=== PATIENT | female | born 1980 | race Caucasian/White ===

== ENCOUNTER 2023-04-29 11:26 | Inpatient (IN) | payer MEDICAID ==
[~2023-04-29] VITALS: Ht 175.3 cm; Wt 56.0 kg
[2023-04-29] MEDS ORDERED: acetaminophen 325mg tablet PO STA (11:27)
[2023-04-29] MEDS ORDERED: normal saline 1000ML IV soln IV ONE (12:05)
[2023-04-29 12:22] LABS: BASOPHILS % (AUTO) 0.2 % (0-1); EOSINOPHILS % (AUTO) 0.1 % (0-6); HEMATOCRIT 32.4 % (35.0-45.0); HEMOGLOBIN 10.8 g/dl (12.0-16.0); LYMPHOCYTES # (AUTO) 0.9 X10'3 (1.1-4.8); LYMPHOCYTES % (AUTO) 5.8 % (21-51); MEAN CORPUSCULAR HEMOGLOBIN 31.6 PG (27.0-31.0); MEAN CORPUSCULAR HGB CONC 33.4 g/dL (33.0-36.5); MEAN CORPUSCULAR VOLUME 94.8 FL (78-98); MEAN PLATELET VOLUME 7.1 FL (7.4-10.4); MONOCYTES # (AUTO) 0.6 X10'3 (0-0.9); MONOCYTES % (AUTO) 3.9 % (2-12); NEUTROPHILS # (AUTO) 13.5 X10'3 (1.8-7.7); PLATELET COUNT 386 X10'3 (140-440); RED BLOOD COUNT 3.42 X10'6 (4.20-5.60); RED CELL DISTRIBUTION WIDTH 13.2 % (11.5-14.5)
[2023-04-29] MEDS ORDERED: CefTRIAXone/D5W-Rocephin 1gm 50 ML IV ONE (12:40)
[2023-04-29 12:48] LABS: ALANINE AMINOTRANSFERASE 31 U/L (12-78); ALBUMIN 3.3 G/DL (3.4-5.0); ALBUMIN/GLOBULIN RATIO 0.9 (1.1-1.5); ALKALINE PHOSPHATASE 69 IU/L (46-116); ANION GAP 10 (8-16); ASPARTATE AMINO TRANSFERASE 19 U/L (10-37); BILIRUBIN,TOTAL 0.6 MG/DL (0.1-1.0); BLOOD UREA NITROGEN 9 MG/DL (7-18); BUN/CREATININE RATIO 12.9 (10.0-20.0); CALCIUM 8.6 MG/DL (8.5-10.1); CHLORIDE 102 MMOL/L (99-107); GLUCOSE 110 MG/DL (70-104); POTASSIUM 3.9 MMOL/L (3.5-5.1); SODIUM 138 MMOL/L (135-145); TOTAL CARBON DIOXIDE 26.5 MMOL/L (24-32); TOTAL PROTEIN 6.9 G/DL (6.4-8.2); eCRCL 94 ML/MIN; eGFR > 90 ML/MIN
[2023-04-29] MEDS ORDERED: vancomycin/NS 1 GM ADD-VANTAGE 250 ML IV ONE (12:50)
--- NOTE | 2023-04-29 13:58 | NUR ---
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 Pt in stable condition. Pt latying on gurney. RR even and unalabored. No s/s of rest distress.
[2023-04-29] MEDS ORDERED: iohexol 300mg/ml 100ml inj. ONE (14:08)
[2023-04-29 14:29] LABS: BILIRUBIN,URINE NEGATIVE (Neg); CLARITY,URINE CLOUDY (Clear); COLOR,URINE YELLOW (Yellow); GLUCOSE, URINE NEGATIVE (Neg); KETONES,URINE NEGATIVE (Neg); LEUKOCYTE ESTERASE ,URINE SMALL (Neg); NITRITES, URINE POSITIVE (Neg); OCCULT BLOOD,URINE TRACE-INTACT (Neg); PH,URINE 6.5 (4.8-8.0); PROTEIN,URINE NEGATIVE (Neg); UROBILINOGEN,URINE 0.2 E.U/dL (0.2-1.0)
[2023-04-29 14:31] LABS: URINE HCG NEGATIVE (NEG)
[2023-04-29 14:33] LABS: UA COLLECTION TYPE VOIDED
[2023-04-29 14:36] LABS: BACTERIA,URINE 4+ /HPF (Neg); MUCUS STRANDS FEW /LPF (Neg); RBC,URINE 0-2 /HPF (0-2); SQUAMOUS EPITHELIAL CELL,UR MODERATE /LPF (FEW); WBC CLUMPS,URINE FEW /HPF (NEGATIVE); WBC,URINE 30-50 /HPF (0-4)
[2023-04-29 14:51] LABS: URINE AMPHETAMINE SCREEN POSITIVE (Neg); URINE BARBITUATE SCREEN NEGATIVE (Neg); URINE BENZODIAZEPINES SCREEN NEGATIVE (Neg); URINE CANNABINOID SCREEN POSITIVE (Neg); URINE COCAINE SCREEN NEGATIVE (Neg); URINE METHADONE SCREEN NEGATIVE (Neg); URINE OPIATE SCREEN NEGATIVE (Neg); URINE PHENCYCLIDINE SCREEN NEGATIVE (Neg)
[2023-04-29] MEDS ORDERED: mupirocin 2% ointment 22GM TP ONE (14:55)
[2023-04-29] MEDS ORDERED: morphine 2 MG/ML inj. syringe IV ONE (14:55)
[2023-04-29] MEDS ORDERED: magnesium 2GM in 50ml NS 50 ML IV PRN (17:00)
[2023-04-29] MEDS ORDERED: potassium Cl 40MEQ/1/2NS 520ml 520 ML IV PRN (17:00)
[2023-04-29] MEDS ORDERED: magnesium 4gm in 100ml NS 100 ML IV PRN (17:00)
[2023-04-29] MEDS ORDERED: magnesium hydroxide 30ml (MOM) UD suspension PO PRN (17:00)
[2023-04-29] MEDS ORDERED: acetaminophen 325mg tablet PO PRN (17:00)
[2023-04-29] MEDS ORDERED: magnesium Cl slow-release 64mg tablet PO PRN (17:00)
[2023-04-29] MEDS ORDERED: HYDROcodone/acetaminophen 5mg/325mg tablet PO PRN (17:00)
[2023-04-29] MEDS ORDERED: ondansetron 4mg rapidly disintigrating tab PO PRN (17:00)
[2023-04-29] MEDS ORDERED: acetaminophen 650mg rectal suppository RC PRN (17:00)
[2023-04-29] MEDS ORDERED: potassium Cl 20 mEq SR tablet PO PRN ×2 (17:00)
[2023-04-29] MEDS ORDERED: HYDROmorphone/PF 0.2 MG/ML SYRINGE IV PRN (17:00)
[2023-04-29] MEDS ORDERED: mag hydrox/Alum hydrox/simeth 30ml oral suspension PO PRN (17:00)
[2023-04-29] MEDS ORDERED: LORazepam 1 MG tablet PO PRN (17:00)
[2023-04-29] MEDS ORDERED: bisacodyl 10mg suppository rectal RC PRN (17:00)
[2023-04-29] MEDS ORDERED: LORazepam 2 mg/ml vial IV PRN (17:00)
[2023-04-29] MEDS ORDERED: TETanus/Pertussis (Acell)/Diphther VAC/PF (Tdap-Adult) 0.5ml syringe IMVAC ONE (17:10)
[2023-04-29] MEDS: normal saline 1000ml 1,000 ML IV SCH (17:36)
[2023-04-29] MEDS: K and/or MAG REPLACEMENT MC SCH (20:00)
[2023-04-29] MEDS: docusate sod 100mg capsule PO SCH (20:55)
[2023-04-29] MEDS: buPROPion 100mg tablet PO SCH (20:57)
[2023-04-30] VITALS (7 sets, daily range): BP systolic 91–110; BP diastolic 53–70; PULSE 79–93; RESP 14–16; TEMP 98.5–100.1; O2SAT 99–100
[2023-04-30] MEDS: normal saline 1000ml 1,000 ML IV SCH ×4 (03:00→23:39)
[2023-04-30] MEDS: clindamycin 300mg/D5W 50mL 50 ML IV SCH ×3 (05:02→15:54)
[2023-04-30] MEDS: HYDROcodone/acetaminophen 10/325mg tab PO PRN (05:11)
--- NOTE | 2023-04-30 06:39 | NUR ---
notified night OF GRAM POSITIVE BLOOD CULTURE, AND DM STATED "CLINDAMYCIN AND ROCEPHIN IS STILL OK TO USE". Addendum: 04/30/23 at 0713 by Atif Nickerson RN PAGER ID: [phone] MESSAGE: GABRIEL JARQUIN, ORTHO, [id number]. RE: [id number]. PT. HAS GRAM + VALDO, AND GRAM - VALDO. PT. ON CLINDAMYCIN AND ROCEPHIN. THANKS
--- NOTE | 2023-04-30 06:44 | NUR ---
Patient in room ORTHO 4012. I have received report from AILEEN RIOS and had the opportunity to ask questions and assume patient care.
[2023-04-30 07:04] LABS: BASOPHILS # (AUTO) 0.1 X10'3 (0-0.2); BASOPHILS % (AUTO) 0.7 % (0-1); EOSINOPHILS % (AUTO) 0.3 % (0-6); HEMATOCRIT 30.2 % (35.0-45.0); HEMOGLOBIN 10.2 g/dl (12.0-16.0); LYMPHOCYTES # (AUTO) 1.3 X10'3 (1.1-4.8); LYMPHOCYTES % (AUTO) 10.1 % (21-51); MEAN CORPUSCULAR HEMOGLOBIN 31.9 PG (27.0-31.0); MEAN CORPUSCULAR HGB CONC 33.7 g/dL (33.0-36.5); MEAN CORPUSCULAR VOLUME 94.7 FL (78-98); MEAN PLATELET VOLUME 8.2 FL (7.4-10.4); MONOCYTES # (AUTO) 0.6 X10'3 (0-0.9); MONOCYTES % (AUTO) 4.6 % (2-12); NEUTROPHILS # (AUTO) 11.1 X10'3 (1.8-7.7); NEUTROPHILS % (AUTO) 84.3 % (42-75); PLATELET COUNT 338 X10'3 (140-440); RED BLOOD COUNT 3.19 X10'6 (4.20-5.60); RED CELL DISTRIBUTION WIDTH 12.9 % (11.5-14.5); WHITE BLOOD COUNT 13.2 X10'3 (4.5-11.0)
[2023-04-30 07:28] LABS: ALANINE AMINOTRANSFERASE 43 U/L (12-78); ALBUMIN 2.6 G/DL (3.4-5.0); ALBUMIN/GLOBULIN RATIO 0.7 (1.1-1.5); ALKALINE PHOSPHATASE 81 IU/L (46-116); ANION GAP 9 (8-16); ASPARTATE AMINO TRANSFERASE 25 U/L (10-37); BILIRUBIN,TOTAL 0.3 MG/DL (0.1-1.0); BLOOD UREA NITROGEN 8 MG/DL (7-18); BUN/CREATININE RATIO 10.4 (10.0-20.0); CHLORIDE 103 MMOL/L (99-107); CREATININE 0.77 MG/DL (0.40-0.90); GLUCOSE 127 MG/DL (70-104); MAGNESIUM 1.9 MG/DL (1.5-2.4); POTASSIUM 3.7 MMOL/L (3.5-5.1); SODIUM 136 MMOL/L (135-145); TOTAL CARBON DIOXIDE 24.3 MMOL/L (24-32); TOTAL PROTEIN 6.1 G/DL (6.4-8.2); eCRCL 85 ML/MIN; eGFR 83 ML/MIN
[2023-04-30] MEDS: buPROPion 100mg tablet PO SCH ×4 (08:00→20:41)
[2023-04-30] MEDS: K and/or MAG REPLACEMENT MC SCH ×2 (08:00→20:00)
[2023-04-30] MEDS: enoxaparin 40mg/0.4ml syringe SUBCUT SCH (08:17)
[2023-04-30] MEDS: docusate sod 100mg capsule PO SCH ×2 (08:17→20:41)
[2023-04-30] MEDS: CefTRIAXone/D5W-Rocephin 1gm 50 ML IV SCH (08:17)
[2023-04-30] MEDS ORDERED: pneumococcal 23-VAL P-sac vacc 25 mcg/0.5ml vial IMVAC ONE (10:00)
[2023-04-30] MEDS: HYDROmorphone inj. 0.5 MG/0.5 ML DISP.SYRIN IV PRN ×2 (10:56→15:53)
--- NOTE | 2023-04-30 14:35 | NUR ---
Malnutrition consult: Per RN malnutrition screen pt reports 2-13 pound wt loss and a decreased appetite/PO intake. Pt seen at bedside and reports UBW of 135-155 pounds and is unsure if she had lost any wt recently. Pt could not remember the last time she weighed herself or had seen her UBW. Due to pending scaled wt this admit and prior wt hx of 56.8kg (125 pounds) on 02/18/23 per EMR, wt loss is unclear. Pt has a hx of homelessness reports eating whenever she can. Pt was unsure if overall her appetite had changed recently. Pt is currently on a regular diet with average PO intake of 100% x 2 meals. Pt request a sprite with dinner; communicated with dietary. No physical signs of muscle or fat wasting indicated at this time though suspected pt has been chronically undernourished. Pt does not meet a minimum of two malnutrition criteria at this time. Will continue to monitor. Addendum: 04/30/23 at [address] Amended: Links added.
--- NOTE | 2023-04-30 14:44 | NUR ---
Malnutrition consult: Per RN malnutrition screen pt reports 2-13 pound wt loss and a decreased appetite/PO intake. Pt seen at bedside and reports UBW of 135-155 pounds and is unsure if she had lost any wt recently. Pt could not remember the last time she weighed herself or had seen her UBW. Due to pending scaled wt this admit and prior wt hx of 56.8kg (125 pounds) on 02/18/23 per EMR, wt loss is unclear. Noted ht this admit of 68 inches is higher prior ht hx 64-69 inches per EMR. Pt has a hx of homelessness reports eating whenever she can. Pt was unsure if overall her appetite had changed recently. Pt is currently on a regular diet with average PO intake of 100% x 2 meals. Pt request a sprite with dinner; communicated with dietary. No physical signs of muslce or fat wasting indicated at this time though suspected pt has been chronically underweight at baseline. Pt does have 1+ trace non-pitting edema to her ankle however pt has a diagnosis of cellulitis to right lower extremity. Wound care has been consulted;pending WOC note. Pt does not meet a minimum of two malnutrition criteria at this time. Will continue to monitor. Addendum: 04/30/23 at [address] Amended: Links added.
[2023-04-30] MEDS ORDERED: UNABLE TO OBTAIN (16:34)
--- NOTE | 2023-04-30 16:58 | NUR ---
PAGER ID: [phone] MESSAGE: GABRIEL JARQUIN, ORTHO, [id number]. RE: [id number]. PT. HAS BAD ACID REFLUX. NOTHING ON EMAR. FYI. THANKS
[2023-04-30] MEDS ORDERED: famotidine 10mg tablet PO PRN (17:10)
--- NOTE | 2023-04-30 17:15 | NUR ---
PRESSURE ULCER EDUCATION: DEFINITION: A pressure ulcer is an area of skin that breaks down when you stay in one position too long. The constant pressure against the skin reduces the blood flow to that area and the affected tissue dies. CAUSES: "Being bedridden or in a wheelchair "Fragile skin "Having a chronic condition, such as diabetes or vascular disease "Inability to move certain parts of your body without assistance "Older age "Incontinence of urine or stool SYMPTOMS: "A reddened area that DOES NOT turn white when pressed on - this can be the beginning of a pressure ulcer "A blister, deep sore or a crater - these can be advanced pressure ulcers FIRST AID: "Relieve the pressure on this area "Keep the area clean and dry "Call your primary doctor if you see any of the above symptoms "DO NOT massage the area "DO NOT use a donut shaped or ring shaped pillow- these actually interfere with the blood flow and cause complications PREVENTION: "Check for pressure ulcers everyday "Change position at least every two hours to relieve pressure "Use items that help relieve pressure- pillows, sheepskin, foam padding, and powders. "Keep skin clean and dry "Eat healthy well balanced meals "Exercise daily IF YOU SEE ANY OF THESE SYMPTOMS WHILE IN THE HOSPITAL - TELL YOUR NURSE IMMEDIATELY. IF YOU SEE ANY OF THESE SYMPTOMS WHILE AT HOME OR HAVE ANY QUESTIONS OR CONCERNS ABOUT PRESSURE ULCERS - CALL YOUR PRIMARY DOCTOR IMMEDIATELY. Addendum: 04/30/23 at 1715 by Suzie Mckay LVN Amended: Links added.
[2023-04-30] MEDS ORDERED: famotidine 20mg tablet PO PRN (17:18)
[2023-04-30] MEDS: calcium carbonate 500mg chew tablet PO SCH (17:26)
[2023-04-30] MEDS: nicotine 21mg patch - 24 hr TD SCH (17:27)
[2023-04-30] MEDS ORDERED: VANCOMYCIN 1,500MG in normal saline IV soln 300 ML IV ONE (17:30)
--- NOTE | 2023-04-30 18:30 | NUR ---
Patient in room ORTHO 4012. I have received report from MILKA and had the opportunity to ask questions and assume patient care.
--- NOTE | 2023-04-30 18:44 | NUR ---
Problems reprioritized. Patient report given TO ANDREW RIOS, questions answered & plan of care reviewed with .
[2023-04-30] MEDS: cefepime 2g/NS 100ml ADVANTAGE 100 ML IV SCH (23:37)
[2023-05-01] MEDS: clindamycin 300mg/D5W 50mL 50 ML IV SCH ×4 (01:14→23:14)
[2023-05-01] MEDS: ondansetron/PF 4mg/2ml inj IV PRN (03:05)
[2023-05-01] MEDS: HYDROcodone/acetaminophen 10/325mg tab PO PRN ×3 (03:11→14:03)
[2023-05-01] MEDS: vancomycin/NS 1 GM ADD-VANTAGE 250 ML IV SCH ×2 (04:38→19:53)
[2023-05-01 06:00] VITALS: BP 123/66; PULSE 86; RESP 16; TEMP 99; O2SAT 100
[2023-05-01 06:10] LABS: BASOPHILS % (AUTO) 0.1 % (0-1); EOSINOPHILS # (AUTO) 0.1 X10'3 (0-0.9); EOSINOPHILS % (AUTO) 0.9 % (0-6); HEMATOCRIT 29.3 % (35.0-45.0); MEAN CORPUSCULAR HEMOGLOBIN 32.2 PG (27.0-31.0); MEAN CORPUSCULAR HGB CONC 34.1 g/dL (33.0-36.5); MEAN CORPUSCULAR VOLUME 94.2 FL (78-98); MEAN PLATELET VOLUME 7.5 FL (7.4-10.4); MONOCYTES # (AUTO) 0.5 X10'3 (0-0.9); MONOCYTES % (AUTO) 5.2 % (2-12); NEUTROPHILS # (AUTO) 8.3 X10'3 (1.8-7.7); NEUTROPHILS % (AUTO) 83.8 % (42-75); PLATELET COUNT 320 X10'3 (140-440); RED BLOOD COUNT 3.11 X10'6 (4.20-5.60); WHITE BLOOD COUNT 9.9 X10'3 (4.5-11.0)
[2023-05-01 06:16] LABS: ALANINE AMINOTRANSFERASE 31 U/L (12-78); ALBUMIN 2.4 G/DL (3.4-5.0); ALBUMIN/GLOBULIN RATIO 0.7 (1.1-1.5); ALKALINE PHOSPHATASE 65 IU/L (46-116); ANION GAP 7 (8-16); ASPARTATE AMINO TRANSFERASE 15 U/L (10-37); BILIRUBIN,TOTAL 0.2 MG/DL (0.1-1.0); BLOOD UREA NITROGEN 10 MG/DL (7-18); BUN/CREATININE RATIO 12.7 (10.0-20.0); CALCIUM 8.5 MG/DL (8.5-10.1); CHLORIDE 105 MMOL/L (99-107); CREATININE 0.79 MG/DL (0.40-0.90); GLUCOSE 116 MG/DL (70-104); POTASSIUM 3.9 MMOL/L (3.5-5.1); SODIUM 137 MMOL/L (135-145); TOTAL CARBON DIOXIDE 25.2 MMOL/L (24-32); eCRCL 83 ML/MIN; eGFR 80 ML/MIN
--- NOTE | 2023-05-01 06:28 | NUR ---
Problems reprioritized. Patient report given, questions answered & plan of care reviewed with WILLIAN.
--- NOTE | 2023-05-01 06:41 | NUR ---
Patient in room ORTHO 4012. I have received report from GABRIEL Collier and had the opportunity to ask questions and assume patient care.
[2023-05-01] MEDS: K and/or MAG REPLACEMENT MC SCH ×2 (08:00→20:00)
[2023-05-01] MEDS: enoxaparin 40mg/0.4ml syringe SUBCUT SCH (08:00)
[2023-05-01] MEDS: docusate sod 100mg capsule PO SCH ×2 (08:23→20:30)
[2023-05-01] MEDS: buPROPion 100mg tablet PO SCH ×3 (08:24→20:30)
[2023-05-01] MEDS: calcium carbonate 500mg chew tablet PO SCH ×3 (08:24→20:30)
[2023-05-01] MEDS: nicotine 21mg patch - 24 hr TD SCH (08:24)
--- NOTE | 2023-05-01 08:59 | NUR ---
MESSAGE: markos Olivera- [id number] Gladis Alcazar- [phone] Pt refused MRI, educated on the importance and still refused. Thank you
--- NOTE | 2023-05-01 09:41 | NUR ---
pt refused MRI and Doctor was paged about her refusal with patient education
[2023-05-01] MEDS: CefTRIAXone/D5W-Rocephin 1gm 50 ML IV SCH (10:01)
--- NOTE | 2023-05-01 10:57 | NUR ---
F/u 05/01: Per [facility] note pt has a laceration on right lateral 5th finger, abrasion to right and left knee, and abrasion to right lateral malleolus. Will continue to follow. Addendum: 05/01/23 at [address] Amended: Links added.
--- NOTE | 2023-05-01 11:23 | NUR ---
Sterile procedure was happening in room and I was not allowed to enter, antibiotics are running late due to not being able to get into the room timely.
[2023-05-01] MEDS: cefepime 2g/NS 100ml ADVANTAGE 100 ML IV SCH ×3 (11:25→23:14)
[2023-05-01] MEDS: normal saline 1000ml 1,000 ML IV SCH (15:35)
[2023-05-01] MEDS: HYDROmorphone inj. 0.5 MG/0.5 ML DISP.SYRIN IV PRN ×2 (16:28→20:30)
--- NOTE | 2023-05-01 18:00 | NUR ---
Patient in room ORTHO 4012. I have received report from GABRIEL GOULD and had the opportunity to ask questions and assume patient care.
--- NOTE | 2023-05-01 18:23 | NUR ---
Problems reprioritized. Patient report given, questions answered & plan of care reviewed with GABRIEL Fabian.
[2023-05-01 22:00] VITALS: BP 92/48; PULSE 91; RESP 16; TEMP 97.7; O2SAT 98
[2023-05-02] MEDS: HYDROcodone/acetaminophen 10/325mg tab PO PRN ×4 (01:55→20:20)
[2023-05-02] MEDS: vancomycin/NS 1 GM ADD-VANTAGE 250 ML IV SCH ×2 (04:24→16:57)
[2023-05-02] MEDS: normal saline 1000ml 1,000 ML IV SCH ×2 (04:27→11:40)
[2023-05-02 06:00] VITALS: BP 93/51; PULSE 80; RESP 16; TEMP 98.5; O2SAT 97
--- NOTE | 2023-05-02 06:31 | NUR ---
Problems reprioritized. Patient report given, questions answered & plan of care reviewed with JOHNY GREGORY.
[2023-05-02 06:44] LABS: BASOPHILS % (AUTO) 0.2 % (0-1); EOSINOPHILS # (AUTO) 0.2 X10'3 (0-0.9); EOSINOPHILS % (AUTO) 2.2 % (0-6); HEMOGLOBIN 10.1 g/dl (12.0-16.0); LYMPHOCYTES % (AUTO) 14.6 % (21-51); MEAN CORPUSCULAR HEMOGLOBIN 32.1 PG (27.0-31.0); MEAN CORPUSCULAR HGB CONC 33.6 g/dL (33.0-36.5); MEAN CORPUSCULAR VOLUME 95.5 FL (78-98); MEAN PLATELET VOLUME 7.8 FL (7.4-10.4); MONOCYTES # (AUTO) 0.4 X10'3 (0-0.9); MONOCYTES % (AUTO) 6.3 % (2-12); NEUTROPHILS # (AUTO) 5.2 X10'3 (1.8-7.7); NEUTROPHILS % (AUTO) 76.7 % (42-75); PLATELET COUNT 323 X10'3 (140-440); RED BLOOD COUNT 3.14 X10'6 (4.20-5.60); RED CELL DISTRIBUTION WIDTH 13.3 % (11.5-14.5); WHITE BLOOD COUNT 6.7 X10'3 (4.5-11.0)
[2023-05-02 07:00] VITALS: RESP 16; O2SAT 98
[2023-05-02 07:19] LABS: ALANINE AMINOTRANSFERASE 33 U/L (12-78); ALBUMIN 2.4 G/DL (3.4-5.0); ALBUMIN/GLOBULIN RATIO 0.7 (1.1-1.5); ALKALINE PHOSPHATASE 64 IU/L (46-116); ANION GAP 7 (8-16); ASPARTATE AMINO TRANSFERASE 13 U/L (10-37); BILIRUBIN,TOTAL 0.2 MG/DL (0.1-1.0); BLOOD UREA NITROGEN 8 MG/DL (7-18); BUN/CREATININE RATIO 12.7 (10.0-20.0); CALCIUM 8.4 MG/DL (8.5-10.1); CHLORIDE 106 MMOL/L (99-107); CREATININE 0.63 MG/DL (0.40-0.90); GLUCOSE 127 MG/DL (70-104); POTASSIUM 3.7 MMOL/L (3.5-5.1); SODIUM 137 MMOL/L (135-145); TOTAL CARBON DIOXIDE 24.3 MMOL/L (24-32); eCRCL 104 ML/MIN; eGFR > 90 ML/MIN
[2023-05-02] MEDS: K and/or MAG REPLACEMENT MC SCH ×2 (08:00→19:27)
[2023-05-02] MEDS: enoxaparin 40mg/0.4ml syringe SUBCUT SCH (08:16)
[2023-05-02] MEDS: docusate sod 100mg capsule PO SCH ×2 (08:16→20:21)
[2023-05-02] MEDS: nicotine 21mg patch - 24 hr TD SCH (08:17)
[2023-05-02] MEDS: buPROPion 100mg tablet PO SCH ×3 (08:17→20:21)
[2023-05-02] MEDS: calcium carbonate 500mg chew tablet PO SCH ×3 (08:17→17:55)
[2023-05-02] MEDS: cefepime 2g/NS 100ml ADVANTAGE 100 ML IV SCH (08:21)
[2023-05-02] MEDS: clindamycin 300mg/D5W 50mL 50 ML IV SCH (09:05)
[2023-05-02 10:00] VITALS: BP 100/57; PULSE 78; RESP 16; TEMP 98.4; O2SAT 98
[2023-05-02] MEDS ORDERED: piperacillin/tazo 4.5gm/100ml 100 ML IV SCH (10:25)
[2023-05-02] MEDS: levoFLOXACIN-Levaquin 750MG/D5 150 ML IV SCH (11:40)
--- NOTE | 2023-05-02 12:41 | NUR ---
WOUND INFECTION EDUCATION PROVIDED BY WOUND CARE 1. Patient instructed to call their primary doctor, or go the ED immediately if any of the following symptoms occur: * Increased pain in wound * Increase in drainage from the wound * Redness in the skin surrounding the wound * Warmth in the skin surrounding the wound * Bleeding from the wound * Temperature of 101 or greater 2. If any of these occur while in the hospital tell a nurse immediately. Addendum: 05/02/23 at 1241 by Julien Reynoso RN Amended: Links added.
[2023-05-02] MEDS ORDERED: VANCOMYCIN LEVEL IV ONE (16:30)
--- NOTE | 2023-05-02 16:50 | NUR ---
Lab not able to draw trough as ordered by pharmacist on this dose. Deirdre pharmacist was notified. She stated she will have it retimed and do the trough next dose.
[2023-05-02 18:00] VITALS: BP 102/64; PULSE 73; RESP 18; TEMP 97.9; O2SAT 98
--- NOTE | 2023-05-02 18:00 | NUR ---
I have reviewed and agree with interventions, assessments, and documentation by La Vazquez LVN.
[2023-05-02 19:00] VITALS: RESP 18; O2SAT 100
[2023-05-02 20:00] VITALS: BP 115/63; PULSE 82; RESP 16; TEMP 97.3; O2SAT 100
[2023-05-02] MEDS: metroNIDAZOLE 500mg tablet PO SCH (20:20)
[2023-05-03] MEDS: normal saline 1000ml 1,000 ML IV SCH ×2 (01:00→11:00)
[2023-05-03] MEDS: HYDROcodone/acetaminophen 10/325mg tab PO PRN ×3 (02:15→14:41)
[2023-05-03] MEDS ORDERED: VANCOMYCIN LEVEL IV ONE (04:30)
[2023-05-03] MEDS: vancomycin/NS 1 GM ADD-VANTAGE 250 ML IV SCH (05:25)
[2023-05-03 06:00] VITALS: BP 107/74; PULSE 71; RESP 16; TEMP 97.4; O2SAT 100
--- NOTE | 2023-05-03 06:00 | NUR ---
Problems reprioritized. Patient report given, questions answered & plan of care reviewed with Keara MCCLAIN.
[2023-05-03 06:28] LABS: BASOPHILS % (AUTO) 0.3 % (0-1); EOSINOPHILS # (AUTO) 0.2 X10'3 (0-0.9); HEMATOCRIT 32.6 % (35.0-45.0); HEMOGLOBIN 10.7 g/dl (12.0-16.0); LYMPHOCYTES # (AUTO) 0.8 X10'3 (1.1-4.8); LYMPHOCYTES % (AUTO) 14.4 % (21-51); MEAN CORPUSCULAR HEMOGLOBIN 31.4 PG (27.0-31.0); MEAN CORPUSCULAR HGB CONC 32.7 g/dL (33.0-36.5); MEAN CORPUSCULAR VOLUME 95.7 FL (78-98); MEAN PLATELET VOLUME 7.9 FL (7.4-10.4); MONOCYTES # (AUTO) 0.4 X10'3 (0-0.9); MONOCYTES % (AUTO) 6.7 % (2-12); NEUTROPHILS # (AUTO) 4.4 X10'3 (1.8-7.7); NEUTROPHILS % (AUTO) 75.6 % (42-75); PLATELET COUNT 421 X10'3 (140-440); RED BLOOD COUNT 3.41 X10'6 (4.20-5.60); RED CELL DISTRIBUTION WIDTH 13.2 % (11.5-14.5); WHITE BLOOD COUNT 5.8 X10'3 (4.5-11.0)
[2023-05-03 06:58] LABS: ALANINE AMINOTRANSFERASE 31 U/L (12-78); ALBUMIN 2.5 G/DL (3.4-5.0); ALBUMIN/GLOBULIN RATIO 0.6 (1.1-1.5); ALKALINE PHOSPHATASE 63 IU/L (46-116); ANION GAP 5 (8-16); ASPARTATE AMINO TRANSFERASE 15 U/L (10-37); BILIRUBIN,TOTAL 0.1 MG/DL (0.1-1.0); BLOOD UREA NITROGEN 12 MG/DL (7-18); CALCIUM 8.9 MG/DL (8.5-10.1); CHLORIDE 104 MMOL/L (99-107); CREATININE 0.75 MG/DL (0.40-0.90); GLUCOSE 90 MG/DL (70-104); MAGNESIUM 2.3 MG/DL (1.5-2.4); POTASSIUM 4.7 MMOL/L (3.5-5.1); SODIUM 139 MMOL/L (135-145); TOTAL CARBON DIOXIDE 29.6 MMOL/L (24-32); VANCOMYCIN,TROUGH 7.4 UG/ML (6.0-14.0); eCRCL 87 ML/MIN; eGFR 85 ML/MIN
[2023-05-03 07:00] VITALS: RESP 16; O2SAT 98
[2023-05-03] MEDS: K and/or MAG REPLACEMENT MC SCH ×2 (08:00→20:00)
[2023-05-03] MEDS: enoxaparin 40mg/0.4ml syringe SUBCUT SCH (08:00)
[2023-05-03] MEDS: levoFLOXACIN-Levaquin 750MG/D5 150 ML IV SCH (08:18)
[2023-05-03] MEDS: calcium carbonate 500mg chew tablet PO SCH ×3 (08:45→17:54)
[2023-05-03] MEDS: buPROPion 100mg tablet PO SCH ×3 (08:45→20:57)
[2023-05-03] MEDS: metroNIDAZOLE 500mg tablet PO SCH ×2 (08:45→20:57)
[2023-05-03] MEDS: docusate sod 100mg capsule PO SCH ×2 (08:46→20:57)
[2023-05-03] MEDS: nicotine 21mg patch - 24 hr TD SCH (08:46)
[2023-05-03 10:00] VITALS: BP 98/61; PULSE 89; RESP 16; TEMP 98.3; O2SAT 98
[2023-05-03] MEDS: VANCOmycin 1250MG/NS 250ml Bag 250 ML IV SCH (16:56)
--- NOTE | 2023-05-03 17:30 | NUR ---
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
[2023-05-03 18:00] VITALS: BP 103/53; PULSE 74; RESP 11; TEMP 97.7; O2SAT 100
--- NOTE | 2023-05-03 18:36 | NUR ---
Patient in room ORTHO 4012. I have received report from Briseyda MCCLAIN and had the opportunity to ask questions and assume patient care.
[2023-05-03 22:00] VITALS: BP_SYST 103; BP_SYST 117; BP_DIAS 53; BP_DIAS 65; PULSE 100; PULSE 79; RESP 16; RESP 19; TEMP 98.6; O2SAT 100
[2023-05-04] MEDS: VANCOmycin 1250MG/NS 250ml Bag 250 ML IV SCH (05:39)
[2023-05-04] MEDS: ondansetron/PF 4mg/2ml inj IV PRN (05:40)
[2023-05-04] MEDS: acetaminophen 325mg tablet PO PRN ×2 (05:51→17:56)
[2023-05-04 06:00] VITALS: BP 101/68; PULSE 64; RESP 17; TEMP 98; O2SAT 99
--- NOTE | 2023-05-04 06:30 | NUR ---
I have received report from JOHNY Pathak and had the opportunity to ask questions and assume patient care. No distress at this time.
[2023-05-04 07:00] VITALS: RESP 16; O2SAT 98
[2023-05-04] MEDS: normal saline 1000ml 1,000 ML IV SCH (07:57)
[2023-05-04] MEDS: nicotine 21mg patch - 24 hr TD SCH (07:58)
[2023-05-04] MEDS: enoxaparin 40mg/0.4ml syringe SUBCUT SCH (07:58)
[2023-05-04] MEDS: metroNIDAZOLE 500mg tablet PO SCH (07:59)
[2023-05-04] MEDS: docusate sod 100mg capsule PO SCH ×2 (07:59→20:15)
[2023-05-04] MEDS: buPROPion 100mg tablet PO SCH ×3 (07:59→20:15)
[2023-05-04] MEDS: calcium carbonate 500mg chew tablet PO SCH ×4 (07:59→20:21)
[2023-05-04] MEDS: K and/or MAG REPLACEMENT MC SCH ×2 (08:00→20:00)
[2023-05-04] MEDS: levoFLOXACIN-Levaquin 750MG/D5 150 ML IV SCH (08:12)
[2023-05-04 08:15] LABS: BASOPHILS % (AUTO) 0.2 % (0-1); EOSINOPHILS # (AUTO) 0.2 X10'3 (0-0.9); EOSINOPHILS % (AUTO) 3.8 % (0-6); HEMATOCRIT 32.6 % (35.0-45.0); LYMPHOCYTES # (AUTO) 0.9 X10'3 (1.1-4.8); LYMPHOCYTES % (AUTO) 15.7 % (21-51); MEAN CORPUSCULAR HEMOGLOBIN 31.9 PG (27.0-31.0); MEAN CORPUSCULAR HGB CONC 33.6 g/dL (33.0-36.5); MEAN CORPUSCULAR VOLUME 94.8 FL (78-98); MEAN PLATELET VOLUME 7.7 FL (7.4-10.4); MONOCYTES # (AUTO) 0.5 X10'3 (0-0.9); MONOCYTES % (AUTO) 8.4 % (2-12); NEUTROPHILS # (AUTO) 3.9 X10'3 (1.8-7.7); NEUTROPHILS % (AUTO) 71.9 % (42-75); PLATELET COUNT 408 X10'3 (140-440); RED BLOOD COUNT 3.44 X10'6 (4.20-5.60); RED CELL DISTRIBUTION WIDTH 13.1 % (11.5-14.5); WHITE BLOOD COUNT 5.5 X10'3 (4.5-11.0)
[2023-05-04] MEDS: HYDROcodone/acetaminophen 10/325mg tab PO PRN ×2 (08:15→12:12)
[2023-05-04 08:40] LABS: ALANINE AMINOTRANSFERASE 33 U/L (12-78); ALBUMIN 2.6 G/DL (3.4-5.0); ALBUMIN/GLOBULIN RATIO 0.7 (1.1-1.5); ALKALINE PHOSPHATASE 59 IU/L (46-116); ANION GAP 9 (8-16); ASPARTATE AMINO TRANSFERASE 21 U/L (10-37); BILIRUBIN,TOTAL 0.1 MG/DL (0.1-1.0); BLOOD UREA NITROGEN 15 MG/DL (7-18); BUN/CREATININE RATIO 20.8 (10.0-20.0); CALCIUM 8.4 MG/DL (8.5-10.1); CHLORIDE 102 MMOL/L (99-107); CREATININE 0.72 MG/DL (0.40-0.90); GLUCOSE 100 MG/DL (70-104); POTASSIUM 4.1 MMOL/L (3.5-5.1); SODIUM 138 MMOL/L (135-145); TOTAL CARBON DIOXIDE 27.3 MMOL/L (24-32); TOTAL PROTEIN 6.5 G/DL (6.4-8.2); eCRCL 91 ML/MIN; eGFR 89 ML/MIN
[2023-05-04 10:00] VITALS: BP 106/64; PULSE 74; RESP 17; TEMP 97.3; O2SAT 99
[2023-05-04] MEDS: pantoprazole 40mg Tablet.DR PO SCH (12:12)
--- NOTE | 2023-05-04 12:37 | NUR ---
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 Pt on a regular diet and eating well, documented with 100% PO intake of all meals except for 75% PO intake at breakfast and lunch 05/01, overall meeting estimated nutrient needs. Per EMR LBM 05/04, previously constipated with LBM 04/29. Pt receiving routine bowel care and has PRN bowel care available, last given 05/02 per EMR. No nutrition intervention implemented at this time. Will continue to follow and make recommendations as appropriate. Recommendations: 1) Continue regular diet 2) Monitor need for additional food for satiety 3) Routine bowel care; utilize PRN bowel care given previously 5 days with no BM 4) Scaled weight this admit; subsequent weekly scaled weights Addendum: 05/04/23 at [address] Amended: Links added.
[2023-05-04] MEDS: cetirizine 10mg tablet PO SCH (14:43)
--- NOTE | 2023-05-04 14:53 | NUR ---
IN HOME CAREGIVER documentation: I have reviewed and agree with all interventions, assessments performed and documented by Debbie Draper LVN.
[2023-05-04] MEDS: traMADol 50MG tablet PO PRN (15:25)
[2023-05-04] MEDS: clindamycin 150mg capsule PO SCH ×2 (15:26→20:15)
[2023-05-04 18:00] VITALS: BP 87/42; PULSE 76; RESP 15; TEMP 98.4; O2SAT 98
--- NOTE | 2023-05-04 18:23 | NUR ---
Problems reprioritized. Patient report given, questions answered & plan of care reviewed with Margy RIOS.
--- NOTE | 2023-05-04 18:25 | NUR ---
Patient in room ORTHO 4012. I have received report from JOHNY CARDOSO and had the opportunity to ask questions and assume patient care.
[2023-05-04 22:00] VITALS: BP 97/54; PULSE 83; RESP 16; TEMP 98.1; O2SAT 100
[2023-05-04] MEDS: temazepam 15mg capsule PO PRN (22:30)
[2023-05-05] MEDS: clindamycin 150mg capsule PO SCH ×4 (02:05→20:47)
[2023-05-05] MEDS ORDERED: VANCOMYCIN LEVEL IV ONE (04:30)
[2023-05-05 06:00] VITALS: BP 87/49; PULSE 74; RESP 16; TEMP 98; O2SAT 99
--- NOTE | 2023-05-05 06:48 | NUR ---
Problems reprioritized. Patient report given, questions answered & plan of care reviewed with GABRIEL NEW.
[2023-05-05] MEDS: K and/or MAG REPLACEMENT MC SCH ×2 (08:00→19:01)
[2023-05-05] MEDS: enoxaparin 40mg/0.4ml syringe SUBCUT SCH (08:00)
[2023-05-05] MEDS: calcium carbonate 500mg chew tablet PO SCH ×2 (08:38→17:19)
[2023-05-05] MEDS: duloxetine 20mg capsule.DR PO SCH (08:38)
[2023-05-05] MEDS: nicotine 21mg patch - 24 hr TD SCH (08:38)
[2023-05-05] MEDS: cetirizine 10mg tablet PO SCH (08:39)
[2023-05-05] MEDS: docusate sod 100mg capsule PO SCH ×2 (08:39→20:47)
[2023-05-05] MEDS: buPROPion 100mg tablet PO SCH ×3 (08:39→20:47)
[2023-05-05] MEDS: pantoprazole 40mg Tablet.DR PO SCH (08:44)
[2023-05-05] MEDS: traMADol 50MG tablet PO PRN ×2 (08:45→15:04)
[2023-05-05] MEDS: acetaminophen 325mg tablet PO PRN ×3 (08:45→21:44)
[2023-05-05] MEDS: levoFLOXACIN-Levaquin 750MG/D5 150 ML IV SCH (09:48)
[2023-05-05 10:00] VITALS: BP 111/46; PULSE 78; RESP 16; TEMP 98.4; O2SAT 100
[2023-05-05 18:00] VITALS: BP 112/61; PULSE 84; RESP 14; TEMP 97.7; O2SAT 98
[2023-05-05] MEDS: temazepam 15mg capsule PO PRN (20:47)
[2023-05-05 22:00] VITALS: BP 102/50; PULSE 69; RESP 18; TEMP 98.4; O2SAT 100
[2023-05-06] MEDS: clindamycin 150mg capsule PO SCH ×3 (01:42→14:36)
[2023-05-06] MEDS: traMADol 50MG tablet PO PRN (05:23)
[2023-05-06 06:30] VITALS: BP 103/52; PULSE 80; RESP 18; TEMP 98.7; O2SAT 99
--- NOTE | 2023-05-06 06:54 | NUR ---
Patient report given to Ivette RN, patient resting comfortably at this time.
[2023-05-06] MEDS: levoFLOXACIN-Levaquin 750MG/D5 150 ML IV SCH (07:15)
[2023-05-06] MEDS: nicotine 21mg patch - 24 hr TD SCH (07:17)
[2023-05-06] MEDS: docusate sod 100mg capsule PO SCH (07:17)
[2023-05-06] MEDS: buPROPion 100mg tablet PO SCH ×2 (07:18→12:53)
[2023-05-06] MEDS: pantoprazole 40mg Tablet.DR PO SCH (07:18)
[2023-05-06] MEDS: cetirizine 10mg tablet PO SCH (07:18)
[2023-05-06] MEDS: enoxaparin 40mg/0.4ml syringe SUBCUT SCH (07:18)
[2023-05-06] MEDS: calcium carbonate 500mg chew tablet PO SCH ×2 (07:19→12:53)
[2023-05-06] MEDS: duloxetine 20mg capsule.DR PO SCH (07:26)
[2023-05-06] MEDS: K and/or MAG REPLACEMENT MC SCH (08:00)
[2023-05-06 10:15] VITALS: BP 138/72; PULSE 92; RESP 16; TEMP 97.4; O2SAT 100
[2023-05-06] MEDS ORDERED: BUPR-122 PO (12:18)
[2023-05-06] MEDS ORDERED: TRAM50TA2 PO (12:18)
[2023-05-06] MEDS ORDERED: DULO20CA18 PO (12:18)
[2023-05-06] MEDS ORDERED: LEVO750T68 PO (12:18)
[2023-05-06] MEDS ORDERED: CLE150C PO (12:18)
--- NOTE | 2023-05-06 14:56 | NUR ---
Patient is discharged on paper. All paper work reviewed and acknowledgment of understanding completed. CM returned page, patient doesn't qualify for a walker. Patient has been up walking independently throughout the unit without any issues. Walks over 1200 ft at a time.
--- NOTE | 2023-05-06 14:56 | NUR ---
Message sent to NAZ: Gladis Kline [phone] Do we have a walker for Her on discharge? Ivette [phone]
--- NOTE | 2023-05-06 15:33 | NUR ---
Patient waiting on a ride. Ride will not be until 1700 or 1800.
--- NOTE | 2023-05-06 16:00 | NUR ---
Patient found going through 4012Bs belongings, she had the lid to the FWW open located on the seat. She states "she keeps lying about me and I am sick of it." Patient is discharged and is currently stalling going home. Patient will be encouraged to call and get her ride set up.
--- NOTE | 2023-05-06 17:01 | NUR ---
PRIMARY NURSE TOLD ME THAT PATIENT WOULD LIKE TO SPEAK W/ME PRIOR TO DISCHARGE, I WENT TO PATIENT'S ROOM AND ASKED HER IF SHE NEEDED ANYTHING PRIOR TO HER DISCHARGE, PT TOLD ME THAT 'MY NURSE DAHLIA TOLD ME THAT I WAS DISCHARGED AND I HAVE BEEN WAITING FOR MY RIDE, BUT I CANNOT DISCHARGE BECAUSE I AM DISABLED' I ASKED PATIENT TO EXPLAIN HER DISABILITY AND PATIENT REPLIED 'AT 3 YEARS OLD I HAVE HAD CORRECTIVE EYE SURGERY AND AM UNABLE TO SEE WELL SO I NEED CORRECTIVE LENSES AND THAT I HAVE EPILEPSY SO I NEED SOMEONE WITH ME AT ALL TIMES AND I NEED A WALKER TOO BECAUSE I AM UNSTEADY ON MY FEET. I CANNOT LEAVE UNTIL I HAVE THESE ITEMS PRIOR TO MY DISCHARGE' I SPOKE WITH PRIMARY NURSE PRIMARY NURSE TELLS ME THAT THE PATIENT HAS BEEN UP AD [facility] WALKING AROUND ALL DAY, ALSO I HAVE SEEN THE PATIENT WALKING UP AD [place]IA AROUND NURSING STATION ALL DAY, PRIMARY NURSE TOLD ME THAT THIS PATIENT HAS BEEN SEEN BY DISCHARGE PLANNING AND THAT THE PATIENT IS REFUSING TO LEAVE AT THIS TIME, UNFORTUNATELY SECURITY WILL NEED TO ESCORT HER OUT OF THE HOSPITAL
--- NOTE | 2023-05-06 17:14 | NUR ---
Patient has been telling nursing staff since 1200 that she can get a ride from her mother around 1500, then the story changed to only being able to be picked up at 1700 or maybe 1800. Patient states there's a lot of kids, 10, at the house and it will take them time. Clothes were provided for patient, she stated she didn't have any clothes. Patient keeps changing her story. Security has been called for an escort out to the lobby. Taxi coupon has been offered to patient, she refused. Patients IV has been removed. Patient has left the unit with security at 1720.
--- NOTE | 2023-05-06 17:23 | NUR ---
Patient aware that she has medications to grape picker at [facility] on [address] and aware of the date and times her next doses are to be taken.
== END 2023-05-06 17:20 | disposition home or self-care (01) | DRG 720 ==
LOC: ER 11:27 → ED HOLD 17:02 → ORTHO 4S 04-30 00:38
PROVIDERS: ADMIT Family Medicine; ATTEND Family Medicine
PROC: 3E0234Z Introduction of Serum, Toxoid and Vaccine into Muscle, Percutaneous Approach (ICD-10-PCS; principal; 2023-04-29)
PROC: BQ2R1ZZ Computerized Tomography (CT Scan) of Right Lower Extremity using Low Osmolar Contrast (ICD-10-PCS; 2023-04-29)
DX: A41.59 Other Gram-negative sepsis (principal); L03.115 Cellulitis of right lower limb; I10 Essential (primary) hypertension; D64.9 Anemia, unspecified; K21.9 Gastro-esophageal reflux disease without esophagitis; F15.10 Other stimulant abuse, uncomplicated; B96.1 Klebsiella pneumoniae [K. pneumoniae] as the cause of diseases classified elsewhere; F17.210 Nicotine dependence, cigarettes, uncomplicated; N39.0 Urinary tract infection, site not specified; R26.2 Difficulty in walking, not elsewhere classified; K59.00 Constipation, unspecified; Z53.20 Procedure and treatment not carried out because of patient's decision for unspecified reasons; Z79.899 Other long term (current) drug therapy; Z59.00 Homelessness unspecified; Z23 Encounter for immunization; Z88.2 Allergy status to sulfonamides; Z91.040 Latex allergy status
CPT/HCPCS: 36415; 70200; 71045; 73701; 73721; 80053; 80202; 80305; 81001; 81025; 83605; 83735; 84145; 85025; 87040; 87077; 87081; 87088; 87186; 90715; 90732; 93005; 97116; 97161; 97530; 99285; A4649; A6196; A6209; A6212; A6223; A6258; A6446; A6449; G0378; J0692; J0696; J1170; J1650; J1956; J2060; J2270; J2405; J3370; J3490; J7030; J7040; Q9967

== ENCOUNTER 2023-05-28 15:36 | Emergency (ER) | payer MEDICAID ==
[~2023-05-28] VITALS: Ht 172.7 cm; Wt 70.0 kg
[~2023-05-28 15:36] MED LIST: BUPR-122 PO; CLE150C PO; DULO20CA18 PO; LEVO750T68 PO; TRAM50TA2 PO
[2023-05-28 15:44] VITALS: BP 118/88; PULSE 99; RESP 18; TEMP 98; O2SAT 100
[2023-05-28] MEDS ORDERED: CEPH250T PO (16:51)
== END 2023-05-28 17:09 | disposition home or self-care (01) ==
LOC: ER 15:36
DX: R23.8 Other skin changes (principal); L53.9 Erythematous condition, unspecified; F15.90 Other stimulant use, unspecified, uncomplicated; Z88.2 Allergy status to sulfonamides; Z91.040 Latex allergy status; Z79.899 Other long term (current) drug therapy
CPT/HCPCS: 99283

== ENCOUNTER 2023-10-01 15:13 | Emergency (ER) | payer MEDICAID ==
[~2023-10-01] VITALS: Ht 172.7 cm; Wt 55.0 kg
[~2023-10-01 15:13] MED LIST changes: -LEVO750T68 PO
[2023-10-01 16:02] VITALS: BP 118/82; PULSE 92; RESP 16; TEMP 98.6; O2SAT 98
[2023-10-01 16:43] LABS: BASOPHILS # (AUTO) 0.1 X10'3 (0-0.2); EOSINOPHILS % (AUTO) 0.7 % (0-6); HEMATOCRIT 38.7 % (35.0-45.0); HEMOGLOBIN 13.3 g/dl (12.0-16.0); LYMPHOCYTES # (AUTO) 1.5 X10'3 (1.1-4.8); LYMPHOCYTES % (AUTO) 28.4 % (21-51); MEAN CORPUSCULAR HEMOGLOBIN 32.8 PG (27.0-31.0); MEAN CORPUSCULAR HGB CONC 34.4 g/dL (33.0-36.5); MEAN CORPUSCULAR VOLUME 95.2 FL (78-98); MONOCYTES # (AUTO) 0.4 X10'3 (0-0.9); MONOCYTES % (AUTO) 7.9 % (2-12); NEUTROPHILS # (AUTO) 3.3 X10'3 (1.8-7.7); PLATELET COUNT 368 X10'3 (140-440); RED BLOOD COUNT 4.06 X10'6 (4.20-5.60); RED CELL DISTRIBUTION WIDTH 13.5 % (11.5-14.5); WHITE BLOOD COUNT 5.3 X10'3 (4.5-11.0)
[2023-10-01 17:05] LABS: ALANINE AMINOTRANSFERASE 29 U/L (12-78); ALBUMIN 3.5 G/DL (3.4-5.0); ALBUMIN/GLOBULIN RATIO 0.9 (1.1-1.5); ALKALINE PHOSPHATASE 110 IU/L (46-116); ANION GAP 3 (8-16); ASPARTATE AMINO TRANSFERASE 20 U/L (10-37); BILIRUBIN,TOTAL 0.3 MG/DL (0.1-1.0); BLOOD UREA NITROGEN 12 MG/DL (7-18); BUN/CREATININE RATIO 16.9 (10.0-20.0); CALCIUM 8.9 MG/DL (8.5-10.1); CHLORIDE 102 MMOL/L (99-107); CREATININE 0.71 MG/DL (0.40-0.90); GLUCOSE 83 MG/DL (70-104); POTASSIUM 3.5 MMOL/L (3.5-5.1); SODIUM 135 MMOL/L (135-145); TOTAL CARBON DIOXIDE 29.6 MMOL/L (24-32); TOTAL PROTEIN 7.3 G/DL (6.4-8.2); eCRCL 91 ML/MIN; eGFR > 90 ML/MIN
== END 2023-10-01 19:00 | disposition left against medical advice (07) ==
LOC: ER 15:14
DX: R21 Rash and other nonspecific skin eruption (principal); Z53.21 Procedure and treatment not carried out due to patient leaving prior to being seen by health care provider
CPT/HCPCS: 36415; 80053; 85025; 99283